=== PATIENT | male | born 1955 | race Caucasian/White ===

== ENCOUNTER 2019-11-15 19:12 | Inpatient (IN) | payer SELFPAY ==
[~2019-11-15] VITALS: Ht 170.2 cm; Wt 70.3 kg
[2019-11-15 19:19] VITALS: BP 148/93
--- NOTE | 2019-11-15 19:52 | NUR ---
A & O X1 (ORIENTED TO SELF).
--- NOTE | 2019-11-15 19:52 | NUR ---
BIBA C/O FALL X YESTERAY. RATES PAIN 4/10 AND DECRBIES IT ACHING. GCS 14. WHEN ASKED ABOUT HOW HE FELL HE WAS CONFUSED WITH HIS ANSWERS. CHLORINATOR REPORTS PD CALL THE AMBULANCE AND SAYS HES HOMELESS BUT PT STATES HES NOT. AMBULATES WITH ASSITANCE. VSS. A & O X 3. 3-4MM PERRLA BRISK, HEMATOMA PRESENT ON RIGHT SIDE OF FRONTAL REGION OF THE HEAD. BRUSING NOTED ON RIGHT SIE OF FACE AND AROUND THE EYE. LUNG SOUNDS CLEAR ALL THROUGHOUT. NKA. PMH: HIV, HTN, HIGH CHOLESTEROL.
[2019-11-15] MEDS ORDERED: NACL 0.9% 1,000 ML IV ONE ×2 (20:25→23:35)
[2019-11-15 20:51] LABS: APPEARANCE,URINE CLEAR (CLEAR); BILIRUBIN,URINE 1+ (NEGATIVE); BLOOD, URINE NEGATIVE (NEGATIVE); LEUKOCYTE ESTERASE ,URINE NEGATIVE (NEGATIVE); NITRITE, URINE NEGATIVE (NEGATIVE); UGLUCOSE NEGATIVE (NEGATIVE)
[2019-11-15 20:53] LABS: COLOR,URINE AMBER (YELLOW)
[2019-11-15 21:01] LABS: BARBITURATE, URINE NEG. ng/ml (NEG <=200); BENZODIAZEPINE, URINE NEG. ng/mL (NEG <=200); CANNABINOID, URINE NEG. ng/mL (NEG <=50); COCAINE, URINE NEG. ng/mL (NEG <=300); OPIATE, URINE NEG. ng/mL (NEG <=2000); PHENCYCLIDINE SCREEN,URINE NEG. ng/mL (NEG <=25)
[2019-11-15 21:03] LABS: ANION GAP 14.2 (8-16); BASOPHILS # (AUTO) 0.1 K/uL (0.00-0.22); BASOPHILS % (AUTO) 0.5 % (0.0-2.0); CARBON DIOXIDE 26.2 mmol/L (21-32); CHLORIDE 105 mmol/L (98-107); CREATININE 1.1 mg/dL (0.7-1.3); EOSINOPHILS # (AUTO) 0.1 K/uL (0-0.4); EOSINOPHILS % (AUTO) 0.7 % (0.0-4.0); GFR ARICAN-AMERICAN 87 mL/min (>90); GLUCOSE 112 mg/dL (74-106); HEMATOCRIT 34.8 % (36-52); HEMOGLOBIN 11.5 g/dL (12.0-18.0); LYMPHOCYTES # (AUTO) 1.5 K/uL (2.0-11.5); LYMPHOCYTES % (AUTO) 13.8 % (20.5-51.1); MEAN CORPUSCULAR HEMOGLOBIN 29 pg (27-31); MEAN CORPUSCULAR HGB CONC 33 g/dL (33-37); MEAN CORPUSCULAR VOLUME 87.8 fL (80-94); MONOCYTES % (AUTO) 9.2 % (1.7-9.3); NEUTROPHILS # (AUTO) 8.2 K/uL (1.8-7.7); NEUTROPHILS % (AUTO) 75.8 % (42.2-75.2); PLATELET COUNT (AUTO) 281 K/uL (140-450); POTASSIUM 3.4 mmol/L (3.5-5.1); RED BLOOD CELL COUNT(AUTO) 3.96 MIL/uL (4.20-6.10); RED CELL DISTRIBUTION WIDTH 13.4 % (11.6-13.7); SODIUM SERUM 142 mmol/L (136-145); UREA NITROGEN, BLOOD 19 mg/dL (7-18); WHITE BLOOD COUNT (AUTO) 10.8 K/uL (4.8-10.8)
[2019-11-15 21:09] LABS: ASPARTATE AMINOTRANSFERASE 72 U/L (15-37)
[2019-11-15 21:10] LABS: ACETAMINOPHEN < 0.5 ug/ml (10-30); SALICYLATE < 2.8 mg/dL (2.8-20.0)
[2019-11-16] VITALS (7 sets, daily range): BP systolic 104–121; BP diastolic 66–82
[2019-11-16] MEDS ORDERED: ONDANSETRON 4 MG/2 ML VIAL IVP PRN (00:05)
[2019-11-16] MEDS ORDERED: HYDROcodone/APAP 7.5/325 MG 1 TAB PO PRN (00:05)
[2019-11-16] MEDS ORDERED: ACETAMINOPHEN 325 MG TAB PO PRN (00:05)
--- NOTE | 2019-11-16 00:40 | NUR ---
ADMITTED A 64M FROM ER. CAME BY [facility]HA DUE TO S/P FALL. PT ALOC. A/O X1-2 ONLY. ON TELE MONITOR-SR. PT IS PLACED IN HIGH RISK FOR FALL PROTOCOL. BED ALARM ON. SKIN ASSESSMENT DONE. WITH MULTIPLE ABRASIONS . ON RIGHT SHOULDER, LT KNEE,RT LOWER LEG AND LT ELBOW. HL ON THE RT FA G#18. CLEAR AND PATENT. HAD 2L NS BOLUS FROM ER. CT HEAD WAS NEGATIVE. ABLE TO AMBULATE FROM RNEY TO BED. LT FOOT TOE NAILS ARE LONG VERY LONG AND BODY VERY DIRTY,AND SMELL . ABLE TO CLEAN THE FEET. ORIENTED TO HOSPITAL ROUTINES. BED ON LOW POSITION, FREQ ROUNDS NEEDED. SIDE RAILS UP X2. CALL LIGHT AND URINALS PLACED WITHIN EASY REACH. DR. SANTIAGO,RESIDENT CAME AND SEEN PT. WILL FOLLOW UP ADMIT ORDERS.
--- NOTE | 2019-11-16 00:40 | NUR ---
Patient will be admitted to care of DR. BUSTILLO. Admited to TELE. Will go to room 126B. Belongings list completed. Report to CHILO OSORIO.
[2019-11-16 00:59] LABS: MAGNESIUM 1.8 mg/dL (1.8-2.4); PHOSPHORUS 3.3 mg/dL (2.5-4.9); THYROID STIMULATING HORMONE 1.23 uIU/mL (0.34-3.74)
[2019-11-16 01:02] LABS: PROTHROMBIN TIME 9.3 secs (10.8-13.4)
--- NOTE | 2019-11-16 01:50 | NUR ---
PROVIDE WITH SOME SANDWICH AND JUICE. INSTRUCTED NOT TO GET UP . TO USE CALL LIGHT . NEED REINFORCEMENT. BED ALARM ON.
[2019-11-16] MEDS ORDERED: MECLIZINE 25 MG TAB PO PRN (02:10)
--- NOTE | 2019-11-16 04:00 | NUR ---
ASLEEP. NO S/S OF ANY PAIN NOTED. PT ALSO WITH BRUISED ON THE RT ORBITAL AREA.
[2019-11-16] MEDS ORDERED: LACTULOSE 20 GM/30 ML UDC PO SCH (04:30)
[2019-11-16] MEDS ORDERED: POTASSIUM CHLORIDE 10 MEQ TABER PO SCH ×2 (04:30→13:53)
[2019-11-16] MEDS: NACL 0.9% 1,000 ML IV SCH ×3 (04:43→13:29)
[2019-11-16 05:57] LABS: BASOPHILS % (AUTO) 0.3 % (0.0-2.0); EOSINOPHILS # (AUTO) 0.2 K/uL (0-0.4); HEMATOCRIT 29.9 % (36-52); LYMPHOCYTES # (AUTO) 2.5 K/uL (2.0-11.5); LYMPHOCYTES % (AUTO) 33.4 % (20.5-51.1); MEAN CORPUSCULAR HEMOGLOBIN 30 pg (27-31); MEAN CORPUSCULAR HGB CONC 33 g/dL (33-37); MEAN CORPUSCULAR VOLUME 88.7 fL (80-94); MONOCYTES # (AUTO) 0.7 K/uL (0.8-1.0); MONOCYTES % (AUTO) 9.3 % (1.7-9.3); NEUTROPHILS # (AUTO) 4.2 K/uL (1.8-7.7); PLATELET COUNT (AUTO) 221 K/uL (140-450); RED BLOOD CELL COUNT(AUTO) 3.37 MIL/uL (4.20-6.10); RED CELL DISTRIBUTION WIDTH 13.2 % (11.6-13.7); WHITE BLOOD COUNT (AUTO) 7.6 K/uL (4.8-10.8)
[2019-11-16 06:18] LABS: ALBUMIN 2.3 g/dL (3.4-5.0); ANION GAP 12.9 (8-16); CARBON DIOXIDE 25.2 mmol/L (21-32); POTASSIUM 3.1 mmol/L (3.5-5.1); TOTAL BILIRUBIN 0.8 mg/dL (0.0-1.0)
--- NOTE | 2019-11-16 06:50 | NUR ---
VS TAKEN ORTHOSTATIC. ABLE TO GET LYING AND SITTING. BUT UNABLE TO GET HIM STANDIGN UP FOR PT C/O PAIN ON THE RT UPPER ARM. WILL MEDICATE FOR PAIN .
[2019-11-16 07:06] LABS: CKMB RELATIVE INDEX 0.4 (0.0-2.5); CREATINE KINASE MB 3.1 ng/mL (0-3.6)
--- NOTE | 2019-11-16 07:25 | NUR ---
ENDORSED PT IN STABLE CONDITION TO AM NURSE.
--- NOTE | 2019-11-16 07:30 | NUR ---
SHIFT REPORT RECEIVED FROM TEAM FACILITATOR NURSE. PT IS RESTING IN BED AT THIS TIME. NO SIGNS OF DISTRESS NOTED. CALL LIGHT IN REACH.
--- NOTE | 2019-11-16 08:28 | NUR ---
WILL BE SEEN WITHIN 1-2 DAYS OF ADMISSION. 11/16/19-11/17/[address]
[2019-11-16] MEDS ORDERED: DOCUSATE SODIUM 100 MG GELCAP PO SCH (09:00)
[2019-11-16] MEDS ORDERED: FAMOTIDINE 20 MG TAB PO SCH (09:00)
--- NOTE | 2019-11-16 10:22 | NUR ---
PT IS IN BED AT THIS TIME. PT IS CONFUSED AOX1-2. NEEDS REENFORCEMENT. NO DISTRESS NOTED. NOTED WITH ABRASION TO BILATERAL FEET, AND LOWER LEGS, FINGERS AND RIGHT SHOULDER. NO COMPLAINS OF PAIN. PT IS COOPERATIVE. CALL LIGHT IN REACH.
--- NOTE | 2019-11-16 11:49 | NUR ---
TRAFFIC SIGN ERECTION SUPERVISOR assessment/discharge plan Name: Usman Plata Home Relationship: friend Pre-Admission Living Arrangements: Lives Alone Healthcare Decision Maker: Patient Tentative Discharge Plan Summary: Patient is a 64 year old male admitted for fall and rhabdomyolysis. Patient is currently confused, not able to obtain information from him. I called and spoke with Hidy from [facility] ([place]) , I asked her if patient has a electronics detail draftsperson listed on their system. She stated the only person patient has listed on their system is his friend Usman Plata . She told me patient's home address in their system is [address] [place] [address]. She reported patient is assigned to [facility] and has not been there since June 2017, they do not have a pcp listed. I called and spoke with patient's friend Usman Plata, he stated last time he had contact with patient was about 1 month ago. He told me he has been looking for patient. He provided me with the following information. Patient lives alone and Usman suspects patient might be using meth. Patient does not have any family involved with his care or has any other friends besides Usman. Usman was contacted by [facility] staff recently and told patient was going to be discharged. Usman attempted to contact patient to pick him up at [facility], however, patient did not answer Usman's calls or texts. Usman is willing to assist patient with discharge plan. Usman's partner is also able to assist, Trevor . Usman expressed he would like to obtain information about patient's current medical condition, I told him I will request to contact him. Usman thanked me for my assistance. Video Clerk and/or Elevator Installer Apprentice will follow up as needed. Signature: JENNIFER Angel Date: Nov 16, 2019
--- NOTE | 2019-11-16 13:00 | NUR ---
PT IS RELAXING BED. PT IS NPO AT THIS TIME DUE TO ULTRASOUND. NO DISTRESS NOTED. CALL LIGHT IN REACH.
--- NOTE | 2019-11-16 15:00 | NUR ---
PT WAS WANDERING ALONG THE [address]. PT REMOVED TELEMONITORING DEVICE. PT ALSO REMOVED IV LINE. PT DOES NOT KNOW WHERE HE IS GOING. PT LOOKS CONFUSED AND AGITATED. REMINDER PATIENT THAT PATIENT IS IN HOSPITAL AND NEEDS TO GO BACK TO HIS BED FOR SAFETY REASONS. PT INITIALLY REFUSED AND SAID HE WANTS TO GO HOME. REENFORCED PATIENT THAT HE NEEDS TO GO BACK TO HIS ROOM. PT WAS GIVEN A SALAD, AND JUICE TO DRINK.
--- NOTE | 2019-11-16 18:00 | NUR ---
PT IS REFUSING TO SIT IN BED. PT IS WALKING IN HALLWAY AND IN ROOM. PT IS REFUSING TO HAVE TELEMONITORING AND IV LINE FLUIDS CONNECTED. PT IS REQUESTING THAT HIS FRIEND COME AND PICK HIM UP. REMINDER PATIENT THAT HE IS IN HOSPITAL AND HE HEEDS TO STAY IN ROOM FOR SAFETY. REMINDER PATIENT THAT SS IS WORKING ON FRIEND. PT WENT BACK TO HIS ROOM.
--- NOTE | 2019-11-16 19:27 | NUR ---
SHIFT REPORT GIVEN TO GREEN BUILDING ARCHITECT NURSE. PT CONTINUES TO WANDER IN ROOM AND [address]. REENFORCED PATIENT TO SIT IN ROOM. VITAL WITHIN NORMAL LEVELS. CALL LIGHT IN REACH.
--- NOTE | 2019-11-16 19:28 | NUR ---
RECEIVED BEDSIDE REPORT FROM DAY SHIFT NURSEARNULFO. PT WALKING AROUND UNIT. HAVE PT IN ROOM. PT SMELLS, REPORT RESIDENT TO TAKE HIM SHOWER. NO IV ASSESS. WEARING PERSONAL CLOTHING. PT CONFUSED, DOES NOT KNOW IT IS HOSPITAL. NO SOB NOTED. BREATHING EVEN AND UNLABORED. POC REVIEWED AND DISCUSS WITH PT, REINFORCEMENT NEEDED. BOARD UPDATED, BED IN LOW POSITION, CALL LIGHT WITHIN REACH.
--- NOTE | 2019-11-16 19:30 | NUR ---
PT CAME OUT FROM ROOM AND TRYING TO GET IN ANOTHER ROOM. HAVE PT IN PT'S ROOM.
--- NOTE | 2019-11-16 20:00 | NUR ---
VS CHECKED, WITHIN PT'S BASE LINE.
--- NOTE | 2019-11-16 20:07 | NUR ---
TOOK PT TO SHOWER ROOM, PT GOT IN SHOWER ROOM AND CLOSED DOOR, 1MIN LATER, PT CAME OUT. NOT TAKING CLOTHING OFF.
--- NOTE | 2019-11-16 20:10 | NUR ---
PT CAME OUT FROM SHOWER ROOM AND GOING TO EMERGENCY EXIT TO GET OUT OF HOSPITAL, CALL SECURITY, PT WENT IN SHOWER ROOM AGAIN.
--- NOTE | 2019-11-16 20:13 | NUR ---
PT CAME OUT FROM SHOWER ROOM, DID NOT TAKE OFF CLOTHING AND TRYING TO GO OUT OF HOSPITAL. DR. MIRAMONTES TALKED TO HIM, HE WENT BACK TO SHOWER ROOM.
--- NOTE | 2019-11-16 20:17 | NUR ---
PT CAME OUT FROM SHOWER ROOM AND LEFT HOSPITAL USING EMERGENCY DOOR. REPORTED TO
== END 2019-11-16 20:17 | disposition left against medical advice (07) | DRG 82 ==
LOC: MED 19:12 → MMU 11-16 00:05
PROVIDERS: ADMIT General Practice; ATTEND General Practice
DX: S06.9X9A Unspecified intracranial injury with loss of consciousness of unspecified duration, initial encounter (principal); E43 Unspecified severe protein-calorie malnutrition; M62.82 Rhabdomyolysis; E87.0 Hyperosmolality and hypernatremia; K72.90 Hepatic failure, unspecified without coma; E87.6 Hypokalemia; I10 Essential (primary) hypertension; D64.9 Anemia, unspecified; E87.8 Other disorders of electrolyte and fluid balance, not elsewhere classified; W18.39XA Other fall on same level, initial encounter; Y93.89 Activity, other specified; Z68.24 Body mass index [BMI] 24.0-24.9, adult; Z87.891 Personal history of nicotine dependence; Y92.89 Other specified places as the place of occurrence of the external cause; Y99.8 Other external cause status
CPT/HCPCS: 36415; 70450; 71045; 76705; 80053; 80305; 81003; 82140; 82550; 82553; 83036; 83735; 83880; 84100; 84443; 84484; 85025; 85610; 85730; 86360; 87081; 93005; 93880; 97116; 97161-GP; 99285; G0480; G0482; J7030; Q0092